=== PATIENT | female | born 1990 | race Two or more races ===

== ENCOUNTER 2024-09-21 05:31 | Day surgery (SDC) | payer OTHER ==
[2024-09-21] MEDS ORDERED: FentaNYL CITRATE/PF 50MCG/ML 2ML VIAL IJ ONE (07:45)
[2024-09-21] MEDS ORDERED: MIDAZOLAM HCL/PF 5 MG/ML VIAL IV ONE (07:45)
[2024-09-21] MEDS ORDERED: DIPHENHYDRAMINE HCL 50 MG/ML VIAL 1ML IV ONE (07:45)
== END 2024-09-21 09:40 | disposition home or self-care (01) ==
LOC: AMB-ENDOS 05:31
PROVIDERS: ATTEND Surgery
DX: K29.00 Acute gastritis without bleeding (principal); K44.9 Diaphragmatic hernia without obstruction or gangrene; R10.13 Epigastric pain; E66.09 Other obesity due to excess calories